=== PATIENT | male | born 1980 | race Caucasian/White ===

== ENCOUNTER 2019-02-09 15:19 | Emergency (ER) | payer MEDICAID ==
[~2019-02-09] VITALS: Ht 175.3 cm; Wt 79.4 kg
[2019-02-09 15:23] VITALS: BP 148/70
--- NOTE | 2019-02-09 15:43 | NUR ---
PT PRESENTS TO THE ED WITH C/O FEELING "TINGLES" ON BOTH L AND R ARM X TODAY. PT STATES THAT FEELING GOES AWAY WHEN HE RAISES BOTH ARMS ABOVE HEAD. +CSM. SKIN IS PINK, WARM, AND DRY. PT DENIES PAIN, N/V/D, CP, AND SOB AT THIS TIME. PT STATES THAT HE IS FRIGHTENED AND STATES "MAYBE IT IS GOD TELLING ME TO CLEAN UP MY LIFE". PT PRESENTS WITH A CLEAR SPEECH AND IS CONVERSING APPROPRIATELY. PT REPORTS SMOKING DAILY AND STATES LAST ALCOHOL USE WAS ON FRIDAY. PT POSITIONED FOR COMFORT, HOB ELEVATED, BED RAIL UP X 1 FOR PT SAFETY. ER MD TO SEE PT. DEXTER HX: CHILDHOOD ASTHMA RX: DENIES
--- NOTE | 2019-02-09 16:03 | NUR ---
Patient being evaluated by INGRID THOMAS at bedside.
--- NOTE | 2019-02-09 16:16 | NUR ---
XRAY AT BEDSIDE
--- NOTE | 2019-02-09 16:21 | NUR ---
LAB AT BEDSIDE
[2019-02-09 16:34] LABS: BASOPHILS % (AUTO) 0.3 % (0.0-2.0); EOSINOPHILS # (AUTO) 0.1 K/uL (0-0.4); EOSINOPHILS % (AUTO) 0.6 % (0.0-4.0); HEMATOCRIT 44.3 % (36-52); HEMOGLOBIN 15.3 g/dL (12.0-18.0); LYMPHOCYTES # (AUTO) 1.1 K/uL (2.0-11.5); LYMPHOCYTES % (AUTO) 12.8 % (20.5-51.1); MEAN CORPUSCULAR HEMOGLOBIN 31 pg (27-31); MEAN CORPUSCULAR HGB CONC 35 g/dL (33-37); MEAN CORPUSCULAR VOLUME 90.6 fL (80-94); MONOCYTES # (AUTO) 0.5 K/uL (0.8-1.0); MONOCYTES % (AUTO) 5.2 % (1.7-9.3); NEUTROPHILS # (AUTO) 7.2 K/uL (1.8-7.7); NEUTROPHILS % (AUTO) 81.1 % (42.2-75.2); PLATELET COUNT (AUTO) 240 K/uL (140-450); RED BLOOD CELL COUNT(AUTO) 4.89 MIL/uL (4.20-6.10); RED CELL DISTRIBUTION WIDTH 12.8 % (11.6-13.7); WHITE BLOOD COUNT (AUTO) 8.9 K/uL (4.8-10.8)
--- NOTE | 2019-02-09 16:39 | NUR ---
PT REPOSITIONED FOR COMFORT. PT IS RESTING AT THIS TIME. WILL CONTINUE TO MONITOR.
[2019-02-09 16:53] LABS: ALBUMIN 3.9 g/dL (3.4-5.0); ANION GAP 12.6 (8-16); CARBON DIOXIDE 28.9 mmol/L (21-32); CREATININE 1.1 mg/dL (0.7-1.3); POTASSIUM 3.5 mmol/L (3.5-5.1); TOTAL BILIRUBIN 0.4 mg/dL (0.0-1.0)
[2019-02-09 17:35] VITALS: BP 135/80
== END 2019-02-09 17:34 | disposition home or self-care (01) ==
LOC: MED 15:19
DX: F32.9 Major depressive disorder, single episode, unspecified (principal); R07.89 Other chest pain; R55 Syncope and collapse
CPT/HCPCS: 36415; 71045; 80053; 85025; 93005; 99284; Q0092